=== PATIENT | female | born 1995 | race Two or more races ===

== ENCOUNTER 2018-10-06 17:55 | Emergency (ER) | payer SELFPAY ==
[~2018-10-06] VITALS: Ht 149.9 cm; Wt 56.7 kg
[2018-10-06 17:55] VITALS: BP 121/72
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
--- NOTE | 2018-10-06 19:08 | NUR ---
HAND-OFF: Report given to Joni RAWLS. patient is stable in bed
[2018-10-06] MEDS ORDERED: Bacitracin Oint UD TOPIC ONE (20:00)
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
[2018-10-06 21:10] VITALS: BP 123/82
[2018-10-06] MEDS ORDERED: IBUPROFEN400 MG ORAL (21:13)
[2018-10-06] MEDS ORDERED: CEPHALEXIN500 MG ORAL (21:13)
[2018-10-06] MEDS ORDERED: BACITRACIN-P28.35 GM TP (21:13)
--- NOTE | 2018-10-06 21:28 | NUR ---
ER DISCHARGE NOTE: Patient is cleared to be discharged per ERMD, pt is aox4, on room air, with stable vital signs. pt was given dc and prescription instructions, pt was able to verbalize understanding, pt id band removed without complications. pt is able to ambulate with steady gait with friends. pt took all belongings.
[2018-10-06 21:29] VITALS: BP 123/82
== END 2018-10-06 21:30 | disposition home or self-care (01) ==
LOC: EDBD 17:55 → EMR 18:35
DX: S01.81XA Laceration without foreign body of other part of head, initial encounter (principal); S00.93XA Contusion of unspecified part of head, initial encounter; V13.4XXA Pedal cycle driver injured in collision with car, pick-up truck or van in traffic accident, initial encounter; Y92.9 Unspecified place or not applicable; Z88.6 Allergy status to analgesic agent
CPT/HCPCS: 99283